=== PATIENT | male | born 1965 ===

== ENCOUNTER → 2023-11-02 | Outpatient (CLI) | payer OTHER | END | disposition home or self-care (01) | LOC: RADMN 09:42 | PROVIDERS: ATTEND Family Medicine | DX: S22.088A Other fracture of T11-T12 vertebra, initial encounter for closed fracture (principal); M41.86 Other forms of scoliosis, lumbar region; K80.20 Calculus of gallbladder without cholecystitis without obstruction; M47.816 Spondylosis without myelopathy or radiculopathy, lumbar region; X58.XXXA Exposure to other specified factors, initial encounter; Y93.89 Activity, other specified; Y92.89 Other specified places as the place of occurrence of the external cause; Y99.8 Other external cause status | CPT/HCPCS: 72131 ==